=== PATIENT | female | born 1990 | race American Indian/Alaskan Native ===

== ENCOUNTER 2021-06-15 14:46 | Emergency (ER) | payer OTHER ==
[2021-06-15 15:32] VITALS: BP 137/89
--- NOTE | 2021-06-15 16:41 | Event Note ---
ED Screening Note Date of service: 06/15/21 Time: 16:38 ED Screening Note: 30-year-old -[place] female presents to the emergency room for a laceration to her left anterior thigh after knife block fell and cut her. Patient states she is not up-to-date on her tetanus. This initial assessment/diagnostic orders/clinical plan/treatment(s) is/are subject to change based on patients health status, clinical progression and re- assessment by fellow clinical providers in the ED. Further treatment and workup at subsequent clinical providers discretion. Patient/guardian urged not to elope from the ED as their condition may be serious if not clinically assessed and managed. Initial orders include: Bandage with Coban was placed to stop the bleeding.
[2021-06-15] MEDS ORDERED: LIDOCAINE (1%) 10 MG/1 ML VIAL 20 ML MDV INFILTRATI ONE (17:15)
--- NOTE | 2021-06-15 17:16 | Emergency Department Report ---
- General Chief Complaint: Wound/Laceration Stated Complaint: CUT LEG LT Time Seen by Provider: 06/15/21 16:37 Source: patient Mode of arrival: Ambulatory Limitations: No Limitations - History of Present Illness Initial Comments: 30-year-old female presents the ER today complaining of laceration to her left thigh area. She states that about an hour ago she accidentally got cut with one of her kitchen knives. She states that she was stepping up onto a stool, and packing her upper cabinet when her knife rack flipped over and one of the knives fell and cut her in the left lower medial thigh area. She states that after she did realize that she had been ongoing until her son notified her that she was bleeding and when she looked down she saw that she had a laceration to her thigh. She reports pain and swelling mainly around the wound and also increased pain with ambulation and movement of her knee. She reports no other symptoms at this time. She is not sure of her last tetanus vaccine. -: Gradual, Sudden Location: other (Left lower medial thigh ) - Related Data Previous Rx's Medication Instructions Recorded Last Taken Type Ibuprofen [Motrin] 600 mg PO Q8H PRN #30 tablet 06/15/21 Unknown Rx Allergies Allergy/AdvReac Type Severity Reaction Status Date / Time No Known Allergies Allergy Unverified 06/15/21 15:31 ED Review of Systems ROS: Stated complaint: CUT LEG LT Other details as noted in HPI Comment: All other systems reviewed and negative Constitutional: denies: chills, fever Eyes: denies: eye pain, eye discharge, vision change ENT: denies: ear pain, throat pain Respiratory: denies: cough, shortness of breath, SOB with exertion, SOB at rest, wheezing Cardiovascular: denies: chest pain, palpitations Gastrointestinal: denies: abdominal pain, nausea, diarrhea, constipation, hematemesis, hematochezia Genitourinary: denies: urgency, dysuria, frequency, hematuria, discharge, abnormal menses, dyspareunia Skin: other (laceration ). denies: rash, lesions, pruritus Neurological: denies: headache, weakness, paresthesias Psychiatric: denies: anxiety, depression, auditory hallucinations, visual hallu cinations, homicidal thoughts, suicidal thoughts Hematological/Lymphatic: denies: easy bleeding, easy bruising, swollen glands ED Past Medical Hx - Medications Home Medications: Home Medications Medication Instructions Recorded Confirmed Last Taken Type Ibuprofen [Motrin] 600 mg PO Q8H PRN #30 tablet 06/15/21 Unknown Rx ED Physical Exam - General Limitations: No Limitations General appearance: alert, in no apparent distress - Head Head exam: Present: atraumatic, normocephalic, normal inspection - Eye Eye exam: Present: normal appearance, PERRL, EOMI Pupils: Present: normal accommodation - Neck Neck exam: Present: normal inspection, full ROM - Respiratory Respiratory exam: Present: normal lung sounds bilaterally. Absent: respiratory distress, wheezes, rhonchi - Cardiovascular Cardiovascular Exam: Present: regular rate, normal rhythm, normal heart sounds - Expanded Lower Extremity Exam Left Upper Leg exam: Present: tenderness (Tenderness mainly around the wound), swelling (Mild swelling mainly around the laceration located to the medial aspect of the left thigh), laceration (Approximately 3 cm laceration noted to the lower medial aspect of the left thigh. Laceration is deep with no obvious muscle, tendon or fascia injury. Bleeding is now controlled.). Absent: abrasion, ecchymosis, deformity, crepidus, dislocation, erythema Knee exam: Present: full ROM Neuro vascular tendon exam: Present: no vascular compromise. Absent: motor deficit, sensory deficit, tendon deficit Gait: Positive: observed and limited by pain - Neurological Exam Neurological exam: Present: alert, oriented X3, CN II-XII intact - Psychiatric Psychiatric exam: Present: normal affect, normal mood ED Course Vital Signs 06/15/21 06/15/21 15:29 17:58 Temperature 98.5 F Pulse Rate 83 Respiratory 16 Rate Blood Pressure 137/89 [Left] O2 Sat by Pulse 98 98 Oximetry ED Medical Decision Making - Radiology Data Radiology results: report reviewed Patient: YANELI BOWERS MR#: [id number] 6 : 1990 Acct:[id number] Age/Sex: 30 / F ADM Date: 06/15/21 Loc: ED Attending Dr: Ordering Physician: CHUCHO TEMPLE Date of Service: 06/15/21 Procedure(s): XR femur 2+V LT Accession Number(s): [id number] cc: CHUCHO TEMPLE Fluoro Time In Minutes: LEFT FEMUR 2 VIEWS INDICATION / CLINICAL INFORMATION: Left leg laceration. COMPARISON: None available. FINDINGS: BONES / JOINT(S): No acute fracture or subluxation. No significant arthritis. SOFT TISSUES: No radiopaque foreign body is seen. ADDITIONAL FINDINGS: None. Signer Name: Grayson Alonzo MD Signed: 06/15/2021 5:42 PM Workstation Name: [id number] Transcribed By: RT Dictated By: Grayson Alonzo MD Electronically Authenticated By: Grayson Alonzo MD Signed Date/Time: 06/15/211741 DD/ 41 TD/TT: Critical care attestation.: If time is entered above; I have spent that time in minutes in the direct care of this critically ill patient, excluding procedure time. ED Disposition Clinical Impression: Laceration of left leg Disposition: - TO HOME OR SELFCARE Is pt being admited?: No Does the pt Need Aspirin: No Condition: Stable Instructions: Sutures, [place], or Adhesive Wound Closure Additional Instructions: Keep wound clean daily with soap and water. Do not use peroxide or alcohol. Dry well after each cleaning and then apply thin layer of Neosporin to the wound and then apply a dressing. Do this daily until sutures need to be removed which will be 10 to 12 days. Return sooner to the ER if there is any signs and symptoms of infection such as pus drainage, increasing redness or pain. Take the ibuprofen as prescribed to help with pain. Prescriptions: Ibuprofen [Motrin] 600 mg PO Q8H PRN #30 tablet PRN Reason: Pain Referrals: [facility] [Provider Group] - 06/26/21 (For Suture removal ) Forms: Work/School Release Form(ED) Time of Disposition: 18:43
--- NOTE | 2021-06-15 17:47 | XRay Report ---
LEFT FEMUR 2 VIEWS INDICATION / CLINICAL INFORMATION: Left leg laceration. COMPARISON: None available. FINDINGS: BONES / JOINT(S): No acute fracture or subluxation. No significant arthritis. SOFT TISSUES: No radiopaque foreign body is seen. ADDITIONAL FINDINGS: None. Signer Name: Grayson Alonzo MD Signed: 06/15/2021 5:42 PM Workstation Name: [id number]
[2021-06-15] MEDS ORDERED: NEOMY 3.5 MG/BACIT 400 UNITS/POLY B 5000 UNITS/GM OINT PACKET TP ONE (18:40)
== END 2021-06-15 19:03 | disposition home or self-care (01) ==
LOC: ED 14:46
DX: S71.112A Laceration without foreign body, left thigh, initial encounter (principal); W26.0XXA Contact with knife, initial encounter; Y93.89 Activity, other specified; Y92.89 Other specified places as the place of occurrence of the external cause; Y99.8 Other external cause status
CPT/HCPCS: 12002; 73552; 99283; A6250

== ENCOUNTER 2021-06-20 13:18 | Emergency (ER) | payer OTHER ==
[2021-06-20 14:47] VITALS: BP 135/91
[2021-06-20] MEDS ORDERED: TETANUS,DIPH,PERTUSS(ACELL) VACCINE 0.5 ML SYRINGE IM ONE (14:47)
--- NOTE | 2021-06-20 14:50 | Emergency Department Report ---
ED General Adult HPI - General Chief complaint: Recheck/Abnormal Lab/Rx Stated complaint: BLOOD CLOT Time Seen by Provider: 06/20/21 14:46 Source: patient Mode of arrival: Ambulatory Limitations: No Limitations - History of Present Illness Initial comments: 31-year-old female presents to the ER today for laceration check to her left thigh and bruising. Patient was seen here 3 days ago for a laceration to her left thigh. Patient states that it was repaired here. She states that the day after she noticed bruising around the wound, and since then the bruising has gotten bigger and seems to be spreading. She states that the swelling around the wound seems to be improving. She states that he still painful but not any worse as when she was seen 3 days ago. She denies any pus drainage from the wound. She denies any fever or chills. Patient also states that she did not get her tetanus shot when she was seen here 3 days ago and is requesting a tetanus shot. MD Complaint: Wound check/bruising/need tetanus -: Gradual, days(s) (2) - Related Data Previous Rx's Medication Instructions Recorded Last Taken Type Ibuprofen [Motrin] 600 mg PO Q8H PRN #30 tablet 06/15/21 Unknown Rx Allergies Allergy/AdvReac Type Severity Reaction Status Date / Time No Known Allergies Allergy Verified 06/20/21 14:42 ED Review of Systems ROS: Stated complaint: BLOOD CLOT Other details as noted in HPI Comment: All other systems reviewed and negative Constitutional: denies: chills, fever Musculoskeletal: arthralgia, myalgia Skin: other (Laceration left thigh) ED Past Medical Hx - Past Medical History Previous Medical History?: No - Surgical History Past Surgical History?: No - Social History Smoking Status: Unknown if ever smoked - Medications Home Medications: Home Medications Medication Instructions Recorded Confirmed Last Taken Type Ibuprofen [Motrin] 600 mg PO Q8H PRN #30 tablet 06/15/21 Unknown Rx ED Physical Exam - General Limitations: No Limitations General appearance: alert, in no apparent distress - Head Head exam: Present: atraumatic, normocephalic, normal inspection - Eye Eye exam: Present: normal appearance, PERRL, EOMI Pupils: Present: normal accommodation - Cardiovascular Cardiovascular Exam: Present: regular rate, normal rhythm, normal heart sounds - Extremities Exam Extremities exam: Present: full ROM, other (Repaired laceration noted to the medial distal left thigh. There is moderate to large amount of bruising around the wound with some mild swelling. But overall the wound is healing well without any signs of infection.). Absent: pedal edema, joint swelling, calf tenderness ED Course Vital Signs 06/20/21 06/20/21 14:45 14:47 Temperature 99.3 F Pulse Rate 80 Respiratory 20 Rate Blood Pressure 135/91 O2 Sat by Pulse 100 Oximetry ED Medical Decision Making - Medical Decision Making Patient with a healing laceration to the distal medial aspect of left thigh. She does have moderate to large amount of bruising around the wound, but overall no infection. Low concern for DVT at this time as she does not have any calf pain and no significant swelling or pain to her left side. She has no chest pain or shortness of breath. Her vital signs are stable. Reassured patient that the wound is healing well, and the bruising is a normal side effect and that it will resolve. Recommend that she elevates the leg as often as possible. Recommend that she puts ice over the area, and take ibuprofen to help with pain. And continue to keep the wound clean daily with soap and water and apply thin layer of Neosporin to the wound. Worsening signs and symptoms as well as what to look for and what to return to the ER for discussed with patient. Gideon hansen tetanus was up-to-dated today. She expressed understanding of instructions and agree with plan. Critical care attestation.: If time is entered above; I have spent that time in minutes in the direct care of this critically ill patient, excluding procedure time. ED Disposition Clinical Impression: Laceration re-check, Hematoma of left thigh Disposition: DC-01 TO HOME OR SELFCARE Is pt being admited?: No Does the pt Need Aspirin: No Condition: Stable Instructions: Contusion, [id number], Wound Care, Adult Additional Instructions: Continue to keep the wound clean daily with soap and water. Elevate your leg as often as possible. You can apply ice to the area. Take ibuprofen and or Tylenol as needed for pain. The bruising around the wound will improve over time. At this time there is no signs of infection, and at this time there is no signs that you were having blood clot, but return to the ER if there is pus drainage from the wound with worsening swelling to the wound, and if there is bruising and redness, going up into the thigh and down into your calf area. Also if you develop a tight swelling to the left thigh and calf area, chest pain or shortness of breath. Recommend close follow-up with your primary care doctor. Return to the ER if your symptoms changes or worsens in any way. Referrals: [facility] [Provider Group] - 3-5 Days Time of Disposition: 14:50
== END 2021-06-20 15:00 | disposition home or self-care (01) ==
LOC: ED 13:18
DX: S70.12XA Contusion of left thigh, initial encounter (principal); Z79.899 Other long term (current) drug therapy; X58.XXXA Exposure to other specified factors, initial encounter; Y93.89 Activity, other specified; Y92.89 Other specified places as the place of occurrence of the external cause; Y99.8 Other external cause status
CPT/HCPCS: 90471; 90715; 99282

== ENCOUNTER 2021-06-29 13:57 | Emergency (ER) | payer OTHER ==
[2021-06-29 14:23] VITALS: BP 123/74
--- NOTE | 2021-06-29 14:45 | Emergency Department Report ---
Suture/Staple Removal - [facility] Chief Complaint: Laceration/Recheck/Suture Stated Complaint: SUTURE REMOVAL Time Seen by Provider: 06/29/21 14:24 When Sutures or Karuna Placed: 11-14 Days Ago Wound Location: Left thigh ED Review of Systems ROS: Stated complaint: SUTURE REMOVAL Other details as noted in HPI Comment: All other systems reviewed and negative Skin: other (laceration left thigh) ED Past Medical Hx - Past Medical History Previous Medical History?: No - Surgical History Past Surgical History?: Yes Additional Surgical History: gastric bypass - Social History Smoking Status: Unknown if ever smoked - Medications Home Medications: Home Medications Medication Instructions Recorded Confirmed Last Taken Type Ibuprofen [Motrin] 600 mg PO Q8H PRN #30 tablet 06/15/21 Unknown Rx Suture Removal Exam - Exam General: Vital signs noted. No distress. Alert and acting appropriately. Wound: No Pathologic Erythema, No Tenderness, No Drainage, No Pus, No Wound Dehiscence Other Systems: All other systems reviewed and are unremarkable. ED Course Vital Signs 06/29/21 14:22 Temperature 98.6 F Pulse Rate 82 Respiratory 18 Rate Blood Pressure 123/74 [Right] O2 Sat by Pulse 99 Oximetry - Procedure Description Procedures done: suture removal: location left thigh. all sutures removed using suture removal kit. wound healing well without any signs of infection. Patient tolerated well without any complication. Critical care attestation.: If time is entered above; I have spent that time in minutes in the direct care of this critically ill patient, excluding procedure time. ED Disposition Clinical Impression: Visit for suture removal Disposition: 01 HOME / SELF CARE / HOMELESS Is pt being admited?: No Does the pt Need Aspirin: No Condition: Stable Instructions: Incision Care, Adult, [id number] Additional Instructions: Continue to keep wound clean with soap and water. Dry well after each cleaning and apply neosporin after each cleaning. Do this for one week. Recommend close follow up with PCP. Return to ED if worse. Referrals: [facility] [Primary Care Provider] - 3-5 Days Time of Disposition: 14:48
== END 2021-06-29 16:48 | disposition home or self-care (01) ==
LOC: ED 13:57
DX: S71.112D Laceration without foreign body, left thigh, subsequent encounter (principal); Z98.890 Other specified postprocedural states; Z48.02 Encounter for removal of sutures; X58.XXXD Exposure to other specified factors, subsequent encounter